=== PATIENT | male | born 1955 | race Caucasian/White ===

== ENCOUNTER 2019-07-06 09:28 | Outpatient (CLI) | payer MEDICARE ==
--- NOTE | 2019-07-06 11:15 | MRI ---
Exam: MRI cervical spine without contrast HISTORY: Radiculopathy.. COMPARISON: 07/08/2009 FINDINGS: Straightening of normal cervical lordosis. No significant STIR hyperintensity to suggest vertebral b christa edema from fracture. No STIR hyperintensity suggest ligamentous injury. Type I Modic changes at the left aspect of C6-C7. Otherwise, appropriate T1 marrow signal intensity o f the cervical vertebra. No evidence of an acute fracture Spondylolisthesis: 1.4 mm of anterolisthesis of C4 upon C5 2.1 mm anterolisthesis of C7 upon T1 Visualized brain parenchyma, cervicomedullary junction, cervical cord and the upper thoracic cord hav e a normal size and signal intensity. C2-C3: No significant central canal stenosis or significant neural foraminal narrowing C3-C4: Broad-based disc osteophyte complex, without significant central canal stenosis. Bilaterally, neural foramina are patent. C4-C5: Broad-based disc osteophyte complex contacts the ventral thecal sac. Subarachnoid space is nae ntained. No significant central canal stenosis. Mild right neural foramina due to uncovertebral hypertrophy. Left neural foramen is patent C5-C6: Broad-based disc osteophyte complex effaces the subarachnoid space. Mass effect and deformity the cervical cord. Moderate central canal stenosis. Moderate right and mild left neural foraminal narrowing due to uncovertebral hypertrophy C6-C7: Broad-based disc osteophyte complex abuts the thecal sac. Ventral subarachnoid space is nearly effaced. Mild central canal stenosis. Bilaterally, neural foramina are patent. C7-T1: No significant central canal stenosis. Bilaterally, neural foramina are patent IMPRESSION: 1. Multilevel degenerative changes of the cervical spine. There is moderate central canal stenosis at C5-C6 secondary to a broad-based disc osteophyte complex. The degree of central canal stenosis at C5-C6 has progressed since the previous examination. 2. Multilevel neural foraminal narrowing of the cervical spine as detailed above.
--- NOTE | 2019-07-06 11:37 | MRI ---
MRI LUMBAR SPINE: 07/06/2019 HISTORY: Lumbar radiculopathy COMPARISON: 11/13/2008 TECHNIQUE: Multiplanar multisequence MR imaging of the lumbar spine without contrast. FINDINGS: The sagittal STIR imaging demonstrates mild increased signal intensity along the superior endplate of the L5 vertebral body laterally on the left, new when compared to the prior exam. This could represent degenerative edema or edema on the basis of a mild superior endplate fracture. On the basis of five lumbar type vertebral bodies, the conus medullaris terminates at the T12-L1 leve l. T12-L1: Mild bilateral facet hypertrophy. Intervertebral disc height and signal intensity within norm al limits with no significant central canal or neural foraminal stenosis. L1-2: Mild bilateral facet hypertrophy. Disc desiccation noted. No significant central canal or neura l foraminal stenosis. L2-3: Mild bilateral facet hypertrophy. Intervertebral disc height and signal intensity within normal limits with no significant central canal or neural foraminal stenosis. L3-4: Bilateral facet hypertrophy and hypertrophy of the ligamentum flavum, right greater than left. There is disc space narrowing with disc desiccation and mild disc bulge, stable. No significant central canal stenosis. Mild left neural foraminal stenosis, new when compared to the prior examination. Mild anterior osteophyte formation noted, slightly worsened when compared to the prior examination. L4-5: Bilateral facet hypertrophy noted, left greater than right. No central canal stenosis noted. Mi ld bilateral neural foraminal stenosis, left greater than right, new. L5-S1: No significant central canal or neural foraminal stenosis. The visualized retroperitoneal structures appear grossly unremarkable. IMPRESSION: Lumbar spine degenerative change as described above. Mild increased STIR signal associated with the s uperior endplate of the L5 vertebral body laterally on the left may signify mild endplate fracture. Transcribed Date/Time: 07/06/2019 11:55 AM
== END 2019-07-06 09:29 | disposition home or self-care (01) ==
LOC: TBSIIMAG 09:28
PROVIDERS: ATTEND Anesthesiology Pain Medicine
DX: M47.26 Other spondylosis with radiculopathy, lumbar region (principal); M47.812 Spondylosis without myelopathy or radiculopathy, cervical region; M48.02 Spinal stenosis, cervical region
CPT/HCPCS: 72141; 72148

== ENCOUNTER 2019-07-17 08:09 | Emergency (ER) | payer MEDICARE ==
--- NOTE | 2019-07-17 09:14 | ULT ---
RIGHT UPPER EXTREMITY VENOUS DOPPLER ULTRASOUND: HISTORY: Right upper extremity pain TECHNIQUE: Grayscale color-flow and spectral Doppler imaging of the deep venous systems of the right upper extre mity was performed. FINDINGS: There is good flow, compression and normal spectral waveforms in the right internal jugular, subclavi an, axillary, brachial, radial, ulnar, basilic and cephalic veins . IMPRESSION: No evidence of DVT in the right upper extremity.
--- NOTE | 2019-07-17 09:39 | RAD ---
EXAM: 2 views of the right wrist HISTORY: Wrist pain COMPARISON: None FINDINGS: 2 views of the right wrist shows no evidence of acute fracture or dislocation. No soft tiss ue swelling is seen. No degenerative changes are present. IMPRESSION: No evidence of acute osseous abnormality.
== END 2019-07-17 09:50 | disposition home or self-care (01) ==
LOC: ERS 08:09
DX: M79.601 Pain in right arm (principal); E11.9 Type 2 diabetes mellitus without complications; E78.5 Hyperlipidemia, unspecified; E78.00 Pure hypercholesterolemia, unspecified; I10 Essential (primary) hypertension; Z79.899 Other long term (current) drug therapy

== ENCOUNTER 2019-07-26 06:32 | Observation (INO) | payer MEDICARE ==
[2019-07-26 06:59] LABS: #Basophils 0.1 thou/uL (0.0-0.2); #Eosinphils 0.2 thou/uL (0.0-0.7); #Lymphocytes 3.5 thou/uL (1.20-3.40); #Monocytes 0.5 thou/uL (0.11-0.59); #Neutrophils 3.4 thou/uL (1.40-6.50); %Basophils 0.8 % (0.0-1.0); %Eosinophils 2.4 % (0.0-10.0); %Lymphocytes 45.5 % (21.0-51.0); %Monocytes 6.7 % (0.0-10.0); %Neutrophils 44.7 % (42.0-75.0); Hemoglobin 12.8 g/dL (14.0-18.0); Mean Corpuscular HGB CONC 33.6 g/dL (32.0-36.0); Mean Corpuscular Hemoglobin 31.5 pg (27.0-31.0); Mean Corpuscular Volume 93.6 fL (78.0-98.0); Mean Platelet Volume 6.9 fL (7.4-10.4); Platelet Count 253 thou/uL (130-400); RBC Distribution Width 12.5 % (11.5-14.5); Red Blood Cell (RBC) Count 4.05 mill/uL (4.70-6.10); White Blood Cell (WBC) Count 7.6 thou/uL (4.8-10.8)
[2019-07-26 07:05] LABS: PTT 30.8 SEC (22.9-36.1)
[2019-07-26 07:11] LABS: Prothrombin Time 12.8 SEC (12.0-14.7)
[2019-07-26 07:21] LABS: ALT (SGPT) 17 U/L (8-55); AST (SGOT) 20 U/L (5-34); Albumin 4.5 g/dL (3.4-4.8); Alkaline Phosphatase 71 U/L (40-110); Anion Gap 16 mmol/L (10-20); BUN (Urea Nitrogen) 22 mg/dL (8.4-25.7); Bilirubin, Total 0.7 mg/dL (0.2-1.2); Calc. Creatinine Clearance 0 mL/min (70-130); Calcium 9.5 mg/dL (7.8-10.44); Carbon Dioxide 23 mmol/L (23-31); Chloride 105 mmol/L (98-107); Estimated GFR-MDRD 56; Globulin 2.9 g/dL (2.4-3.5); Glucose 100 mg/dL (80-115); Potassium 4.2 mmol/L (3.5-5.1); Protein, Total 7.4 g/dL (5.8-8.1); Sodium 140 mmol/L (136-145)
--- NOTE | 2019-07-26 08:28 | CT ---
PRELIMINARY REPORT/[facility]/EMERGENCY AFTER HOURS PROCEDURE: Addendum created by Keo Tomlinson MD on 07/26/2019 7:15 AM Central Time ([place] & [place]) Findings were discussed with Dr Kelley at 07/26/2019 7:[address] [place] JUDGE. Initial Report created on 07/26/2019 7:04 AM Central Time ([place] & [place]) PROCEDURE INFORMATION: Exam: CT Head Without Contrast Exam date and time: 07/26/2019 6:49 AM Clinical history: 64 years old, male; Altered mental status/memory loss; Patient HX: Left sided weakn ess; Headache; Dizziness TECHNIQUE: Imaging protocol: Computed tomography of the head without contrast. Other technique: STROKE PROTOCOL was implemented. COMPARISON: No relevant prior studies available. FINDINGS: Brain: Normal. No hemorrhage. Unremarkable white matter. No mass effect. No loss of brower-white differ entiation is demonstrated. Ventricles: Normal. No ventriculomegaly. Bones/joints: Unremarkable. No acute fracture. Sinuses: Visualized sinuses are unremarkable. No fluid levels. Mastoid air cells: Visualized mastoid air cells are well aerated. Soft tissues: Unremarkable. IMPRESSION: No acute intracranial hemorrhage. ASSESSMENT: ASPECTS ([place] Stroke Program Early CT Score) is 10. Thank you for allowing us to participate in the care of your patient. Dictated and Authenticated by: Keo Tomlinson MD 07/26/2019 7:04 AM Central Time ([place] & [place]) FINAL REPORT CT BRAIN WITHOUT CONTRAST: HISTORY: Level II stroke. COMPARISON: CT brain 2016. FINDINGS: Findings and impression are concordant with the preliminary report. IMPRESSION: No acute hemorrhage or infarct. Transcribed Date/Time: 07/26/2019 8:35 AM
--- NOTE | 2019-07-26 08:31 | CT ---
PRELIMINARY REPORT/[facility]/EMERGENCY AFTER HOURS PROCEDURE: PROCEDURE INFORMATION: Exam: CT Angiography Head With Contrast Exam date and time: 07/26/2019 6:55 AM Clinical history: 64 years old, male; Patient HX: Left sided weakness; Headache; Dizziness TECHNIQUE: Imaging protocol: Computed tomography angiography of the head with intravenous contrast. 3D rendering: MIP reconstructed images were created and reviewed. COMPARISON: CT Brain WO Con 07/26/2019 6:49 AM FINDINGS: Right internal carotid artery: Unremarkable. Intracranial segment is patent with no significant steno sis. No aneurysm. Right anterior cerebral artery: Unremarkable. No occlusion or significant stenosis. No aneurysm. Right middle cerebral artery: Unremarkable. No occlusion or significant stenosis. No aneurysm. Right posterior cerebral artery: Unremarkable. No occlusion or significant stenosis. No aneurysm. Right vertebral artery: Unremarkable. No occlusion or significant stenosis. No aneurysm. Left internal carotid artery: Unremarkable. Intracranial segment is patent with no significant stenos is. No aneurysm. Left anterior cerebral artery: Unremarkable. No occlusion or significant stenosis. No aneurysm. Left middle cerebral artery: Unremarkable. No occlusion or significant stenosis. No aneurysm. Left posterior cerebral artery: Unremarkable. No occlusion or significant stenosis. No aneurysm. Left vertebral artery: Unremarkable. No occlusion or significant stenosis. No aneurysm. Basilar artery: Unremarkable. No occlusion or significant stenosis. No aneurysm. IMPRESSION: No large intracranial artery aneurysm, dissection or occlusion. PROCEDURE INFORMATION: Exam: CT Angiography Neck With Contrast Exam date and time: 07/26/2019 6:55 AM Clinical history: 64 years old, male; Patient HX: Left sided weakness; Headache; Dizziness TECHNIQUE: Imaging protocol: Computed tomography angiography of the neck with intravenous contrast. COMPARISON: CT Brain WO Con 07/26/2019 6:49 AM FINDINGS: VASCULATURE: Right common carotid artery: Unremarkable. No stenosis. No dissection or occlusion. Right internal carotid artery: There is mild to moderate atherosclerotic calcification at the RIGHT carotid bulb resulting in mild stenosis at the origin of the RIGHT internal carotid artery. Right external carotid artery: Unremarkable. No occlusion or stenosis of the origin. Right vertebral artery: Unremarkable. No stenosis. No dissection or occlusion. Left common carotid artery: Unremarkable. No stenosis. No dissection or occlusion. Left internal carotid artery: There is mild to moderate atherosclerotic calcification at the LEFT car otid bulb resulting in mild stenosis at the origin of the LEFT internal carotid artery. Left external carotid artery: Unremarkable. No occlusion or stenosis of the origin. Left vertebral artery: Unremarkable. No stenosis. No dissection or occlusion. NECK: Bones/joints: No acute fracture. Soft tissues: Normal. No significant soft tissue swelling. IMPRESSION: 1. No acute vascular pathology. 2. Mild to moderate stenoses at the carotid bulbs bilaterally. COMMENT: Reference per NASCET criteria for degree of stenosis: Mild: less than 50% stenosis. Moderate: 50- 69% stenosis. Severe: 70-94% stenosis. Near occlusion: 95-99% stenosis. Thank you for allowing us to participate in the care of your patient. Dictated and Authenticated by: Keo Tomlinson MD 07/26/2019 7:25 AM Central Time ([place] & [place]) FINAL REPORT CTA ANGIO HEAD WITH AND WITHOUT CONTRAST: HISTORY: Level ii stroke. COMPARISON: None.. FINDINGS: CT angiogram head and neck performed after the intravenous ministration of contrast. 3-D rendering pr ovided. IMPRESSION: Findings and impression are concordant with the preliminary report. Transcribed Date/Time: 07/26/2019 8:38 AM
[2019-07-26 08:35] LABS: Bilirubin Negative (Negative); Blood, Urine Negative (Negative); Clarity Clear (Clear); Glucose, Urine (Dipstick) Normal (Negative); Leukocyte Negative Leu/uL (Negative); Nitrite Negative (Negative); Protein, Urine (Dipstick) Negative (Neg-Trace); Urobilinogen Normal mg/dL (Less than 2)
[2019-07-26 08:49] LABS: Amphetamine Not Detected (NotDetected); Barbiturates Screen Not Detected (NotDetected); Benzodiazepine Screen Detected (NotDetected); Cocaine Metabolite Screen Not Detected (NotDetected); Medtox Reader # READER 1; Methadone Not Detected (NotDetected); Methamphetamine Not Detected (NotDetected); Opiate Screen Not Detected (NotDetected); Oxycodone Screen Not Detected (NotDetected); Phencyclidine (PCP) Not Detected (NotDetected); THC/Cannabinoid Screen Not Detected (NotDetected); Tricyclic Screen Not Detected (NotDetected)
[2019-07-26 08:50] LABS: Medtox Control Line Valid? VALID (VALID)
[2019-07-26] MEDS ORDERED: Acetaminophen 500 MG TAB ONE (09:50)
[2019-07-26] MEDS ORDERED: ISOVUE-370 76%-LOCM 1 ML ONE (12:00)
[2019-07-26] MEDS ORDERED: Ondansetron ODT 4 MG TAB PO PRN (12:12)
[2019-07-26] MEDS ORDERED: Ondansetron PF 4 MG/2 ML Vial IVP PRN (12:12)
[2019-07-26] MEDS ORDERED: Acetaminophen 325 MG TAB PO PRN ×2 (12:13→12:24)
[2019-07-26] MEDS ORDERED: Sodium Chloride 0.9% 1,000 ML IV SCH (12:15)
[2019-07-26] MEDS ORDERED: Dextrose 5% in Water 1,000 ML IV PRN (12:24)
[2019-07-26] MEDS ORDERED: Labetalol HCl 100 MG/20 ML VIAL SLOW IVP PRN (12:24)
[2019-07-26] MEDS ORDERED: HumaLOG 300 UNITS/3 ML VIAL SC PRN (12:24)
[2019-07-26] MEDS ORDERED: Dextrose 50% Abboject 50 ML SYRINGE SLOW IVP PRN (12:24)
[2019-07-26] MEDS ORDERED: hydrALAZINE 20 MG/ML VIAL SLOW IVP PRN (12:24)
[2019-07-26] MEDS ORDERED: Bisacodyl 5 MG TAB PO PRN (12:24)
--- NOTE | 2019-07-26 14:22 | HP ---
PRIMARY CARE PROVIDER: Dr. Zackery Jordan in [place], [place]. CHIEF COMPLAINT: Left-sided numbness. HISTORY OF PRESENT ILLNESS: Mr. Santiago is a pleasant 64-year-old gentleman, who was seen at [facility] on July 26, 2019. He was reportedly normal at midnight when he went to sleep. On waking up today morning, he was found to have left-sided weakness, left-sided numbness and tingling and slurred speech. The patient also reports that the left side of his face was swollen, but that appears to have improved. He denies any chest pain or shortness of breath. He reports chronic pain for which he is on a Dilaudid pump. He denies any previous neurologic symptoms. REVIEW OF SYSTEMS: All systems were reviewed and found to be negative except for the pertinent positives mentioned above. PAST MEDICAL HISTORY: Diabetes, dyslipidemia, hypertension, chronic pain. SURGICAL HISTORY: Carpal tunnel surgery, bilateral knee surgery, suprapubic catheter placement and removal. SOCIAL HISTORY: The patient drinks three beers daily. He denies tobacco use or recreational drug use. FAMILY HISTORY: The patient denies any family history of cerebrovascular accidents. ALLERGIES: NO KNOWN DRUG ALLERGIES. CURRENT MEDICATIONS: 1. Temazepam 30 mg as needed. 2. Losartan 50 mg daily. 3. Pramipexole 1 mg daily. 4. Plavix 75 mg daily. 5. Clonidine 0.1 mg as needed. 6. Crestor 20 mg daily. 7. Benztropine 1 mg daily. 8. Gabapentin 600 mg 4 times a day. 9. Tizanidine 2 mg as needed. 10. Ozempic 0.25 mg once a week. 11. Dilaudid pump. PHYSICAL EXAMINATION: GENERAL: On examination, Mr. Santiago is awake and alert, not in acute distress. VITAL SIGNS: Blood pressure is 117/61, pulse 55, respiratory rate 17, and oxygen saturation 97% on room air. He is afebrile. EYES: No scleral icterus, no conjunctival pallor. ENT: Moist mucosal membranes. No oropharyngeal erythema or exudates. NECK: Supple, nontender, trachea is midline. RESPIRATORY: Accessory muscles of breathing are not active. Chest wall movements are symmetric bilaterally. Lungs are clear to auscultation without wheeze, rhonchi, or crepitations. CARDIOVASCULAR: S1 and S2 are heard, regular. Peripheral pulses palpable. ABDOMEN: Soft, nontender, bowel sounds heard. NEUROLOGIC: Cranial nerves 2 through 12 are intact. Power is 4+ out of 5 in the right upper and lower extremities, 4/5 in the left upper and lower extremities. Diminished sensation on the left side. Deep tendon reflexes 2+, plantars downgoing bilaterally. MUSCULOSKELETAL: Power in the 4 extremities as described above. SKIN: No rashes. LYMPHATIC: No cervical lymphadenopathy. PSYCHIATRIC: Normal mood, normal affect, the patient is oriented to person, place, and time. LABORATORY DATA: Mr. Santiago's labs and investigations were reviewed. I reviewed his electrocardiogram, which shows normal sinus rhythm, no ST changes to suggest an acute coronary syndrome. I also reviewed his noncontrast CT scan of the brain, which does not show any acute hemorrhage or infarct. CT angiogram of [place] did not show any acute vascular pathology. He had mild to moderate stenosis at the carotid bulbs bilaterally. He has normal white count, normocytic anemia with hemoglobin 12.8, normal platelet count, INR 1.0, normal comprehensive metabolic profile, urinalysis negative for nitrite and leukocyte esterase, and the urine toxicology screen positive for benzodiazepine. ASSESSMENT AND PLAN: Mr. Santiago is a pleasant 64-year-old gentleman, who was seen at [facility] on July 26, 2019. His problem list includes: 1. Left-sided weakness: Mr. Santiago is presenting with left-sided numbness, tingling, as well as weakness. CT scan of the brain did not show any abnormality. He will be admitted to the hospital for further management including MRI of the brain, 2D echocardiogram and Neurology consultation. He will be started on aspirin. 2. Chronic pain: The patient's home medications will be resumed once the doses are clarified. 3. Diabetes mellitus type 2: We will start patient on Accu-Cheks and insulin sliding scale. 4. Dyslipidemia: We will continue Crestor. 5. Hypertension: We will resume home medications, monitor vital signs and titrate antihypertensives as needed. Many thanks for allowing me to participate in your patient's care. Please feel free to contact me with any questions or concerns. LEVEL OF RISK: High. LEVEL OF COMPLEXITY: High. Job ID: [id number]
[2019-07-26 14:23] VITALS: BMI 37.9
[2019-07-26] MEDS ORDERED: FLU VACC QS2019-20(6MOS UP)/PF 60 MCG/0.5 ML SYRINGE IM ONE (14:30)
[2019-07-26] MEDS: Lorazepam 2 MG/ML VIAL SLOW IVP PRN (14:35)
[2019-07-26] MEDS: Aspirin 325 mg Enteric Coated Tablet PO SCH ×2 (16:31→19:28)
[2019-07-26] MEDS ORDERED: Gabapentin 300 MG CAP PO SCH (22:45)
[2019-07-26] MEDS ORDERED: Pramipexole Di-HCl 1 MG TAB PO SCH (22:45)
[2019-07-27] MEDS ORDERED: tiZANidine HCl 4 MG TAB PO PRN (02:05)
[2019-07-27] MEDS ORDERED: Temazepam 15 MG CAP PO SCH ×2 (02:15→21:00)
[2019-07-27 05:05] LABS: #Basophils 0.1 thou/uL (0.0-0.2); #Eosinphils 0.1 thou/uL (0.0-0.7); #Lymphocytes 2.8 thou/uL (1.20-3.40); #Monocytes 0.3 thou/uL (0.11-0.59); #Neutrophils 3.3 thou/uL (1.40-6.50); %Basophils 1.1 % (0.0-1.0); %Eosinophils 2.1 % (0.0-10.0); %Lymphocytes 41.7 % (21.0-51.0); %Monocytes 5.1 % (0.0-10.0); %Neutrophils 49.9 % (42.0-75.0); Hemoglobin 12.6 g/dL (14.0-18.0); Mean Corpuscular Volume 93.9 fL (78.0-98.0); Mean Platelet Volume 6.8 fL (7.4-10.4); Platelet Count 274 thou/uL (130-400); RBC Distribution Width 12.4 % (11.5-14.5); Red Blood Cell (RBC) Count 4.05 mill/uL (4.70-6.10); White Blood Cell (WBC) Count 6.7 thou/uL (4.8-10.8)
[2019-07-27 05:20] LABS: Anion Gap 12 mmol/L (10-20); BUN (Urea Nitrogen) 18 mg/dL (8.4-25.7); Calc. Creatinine Clearance 98 mL/min (70-130); Calcium 9.2 mg/dL (7.8-10.44); Carbon Dioxide 26 mmol/L (23-31); Cardiac Risk 3.6 (Less than 4.5); Chloride 105 mmol/L (98-107); Cholesterol 135 mg/dl (< 200 Desired); Estimated GFR-MDRD 63; Glucose 113 mg/dL (80-115); HDL Cholesterol 37 mg/dL (>60 Neg Risk); LDL Cholesterol, Calculated 78 mg/dL; Potassium 4.2 mmol/L (3.5-5.1); Sodium 139 mmol/L (136-145); Triglycerides 98 mg/dL (Less than 150)
[2019-07-27] MEDS: Losartan 25 MG TAB PO SCH (10:02)
[2019-07-27] MEDS: Aspirin 325 mg Enteric Coated Tablet PO SCH (10:02)
[2019-07-27] MEDS: Gabapentin 300 MG CAP PO SCH ×3 (10:04→20:59)
[2019-07-27] MEDS: Benztropine 1 MG TAB PO SCH (10:05)
[2019-07-27] MEDS: Clopidogrel Bisulfate 75 MG TAB PO SCH (10:05)
[2019-07-27] MEDS: Enoxaparin Sodium 40 MG/0.4 ML SYRINGE SC SCH (10:07)
[2019-07-27] MEDS: Pramipexole Di-HCl 1 MG TAB PO SCH ×3 (10:36→20:59)
[2019-07-27] MEDS: Lorazepam 2 MG/ML VIAL SLOW IVP PRN (10:56)
--- NOTE | 2019-07-27 12:51 | MRI ---
MRI BRAIN WITHOUT CONTRAST: HISTORY: Altered mental status. Memory loss. Left-sided weakness. Headache. Dizziness. CORRELATION: Previous day's CT scan. FINDINGS: No restricted diffusion is seen. No evidence of acute infarct, hemorrhage, midline shift or abnormal extraaxial fluid collections is seen. The ventricular size is appropriate and the basilar cisterns ar e patent. The visualized paranasal sinuses and mastoid air cells are well aerated. IMPRESSION: No evidence of acute intracranial process. POS: OFF
--- NOTE | 2019-07-27 18:16 | PDOC.HOSPP ---
- Subjective Encounter Date: 07/27/19 Encounter Time: 18:14 Subjective: Pt seen for followup re: left sided weakness. feels slightly better. - Objective Vital Signs & Weight: Vital Signs (12 hours) Temp Pulse Pulse Pulse Resp BP BP 07/27/19 15:49 97.9 F 58 L 16 07/27/19 13:15 80 75 114/54 L 07/27/19 11:00 98.4 F 64 17 07/27/19 08:37 99 70 147/111 H 07/27/19 08:30 07/27/19 08:10 98.3 F 67 20 136/58 L BP BP Pulse Ox 07/27/19 15:49 104/64 96 07/27/19 13:15 146/69 H 07/27/19 11:00 137/82 92 L 07/27/19 08:37 155/76 H 07/27/19 08:30 94 L 07/27/19 08:10 Weight Weight 234 lb 12.8 oz I&O: 07/26/19 07/27/19 07/28/19 06:59 06:59 06:59 Intake Total 1860 Output Total 1300 Balance 560 Result Diagrams: 07/27/19 04:42 07/27/19 04:42 Additional Labs: Accuchecks 07/27/19 07/27/19 07/27/19 16:58 10:38 06:00 POC Glucose 103 106 90 07/26/19 19:22 POC Glucose 83 Labs and MARs reviewed by me EKG Reviewed by me: Yes (Tele: NSR) Hospitalist ROS - Review of Systems Cardiovascular: denies: chest pain, palpitations, orthopnea, paroxysmal noc. dyspnea, edema, light headedness Neurological: reports: weakness, numbness. denies: incoordination, change in speech, confusion, seizures - Medication Medications: Active Medications Generic Name Dose Route Start Last Admin Trade Name Freq PRN Reason Stop Dose Admin Aspirin 325 mg 07/27/19 09:00 07/27/19 10:02 Ecotrin PO 325 mg DAILY TONI Administration Benztropine Mesylate 1 mg 07/27/19 09:00 07/27/19 10:05 Cogentin PO 1 mg DAILY TONI Administration Clopidogrel Bisulfate 75 mg 07/27/19 09:00 07/27/19 10:05 Plavix PO 75 mg DAILY TONI Administration Enoxaparin Sodium 40 mg 07/27/19 09:00 07/27/19 10:07 Lovenox SC 40 mg 0900 TONI Administration Gabapentin 600 mg 07/27/19 09:00 07/27/19 15:13 Neurontin PO 600 mg TID TONI Administration Lorazepam 0.5 mg 07/26/19 14:17 07/27/19 10:56 Ativan SLOW IVP 0.5 mg Q6H PRN Administration Anxiety/Agitation Losartan Potassium 50 mg 07/27/19 09:00 07/27/19 10:02 Cozaar PO 50 mg DAILY TONI Administration Pramipexole Dihydrochloride 1 mg 07/27/19 09:00 07/27/19 15:13 Mirapex PO 1 mg TID TONI Administration Sodium Chloride 10 ml 07/26/19 21:00 07/27/19 10:06 Flush - Normal Saline IVF 10 ml Q12HR TONI Administration Tizanidine HCl 4 mg 07/27/19 02:05 07/27/19 13:58 Zanaflex PO 4 mg TID PRN Administration Muscle Spasm - Exam General - other findings: Obese Eye: anicteric sclera ENT: moist mucosa Neck: supple Heart: RRR Respiratory: CTAB Gastrointestinal: soft, non-tender Neurological - other findings: Decreased sensation L side Musculoskeletal: normal tone Psychiatric: normal affect, normal behavior Hosp A/P (1) Left-sided weakness Code(s): R53.1 - WEAKNESS Status: Acute (2) DM2 (diabetes mellitus, type 2) Status: Chronic (3) Chronic pain Code(s): G89.29 - OTHER CHRONIC PAIN Status: Chronic (4) HTN (hypertension) Code(s): I10 - ESSENTIAL (PRIMARY) HYPERTENSION Status: Chronic - Plan Monitor vital signs, titrate antihypertensives as needed. Good control of blood sugars. Await neurosurgery input. MRI brain and 2D echo reports noted.
--- NOTE | 2019-07-27 21:20 | CON ---
DATE OF TELEMEDICINE CONSULTATION: 07/27/2019 CHIEF COMPLAINT: The patient comes in with left-sided weakness. He reports he was having swelling of his wrist, which then spread to both the wrists and legs by the second day. He was unable to use his hand very well. He has had dysarthria for a residential. He developed sudden-onset left-sided weakness and left-sided numbness mostly in the left arm and leg at home normally, he needs help sometimes with getting dressed or taking care of his day-to-day activities, but mostly needs help getting up from the couch. He lives with his cousin. He has chronic back pain. He fell last week end and his back pain is a major cause of difficulty for him. PREVIOUS MEDICAL HISTORY: The patient has diabetes, hypertension. He has been on Dilaudid pain pump for 2-1/2 years. Prior to that, he was on a pain stimulator , and the patient also has dyslipidemia, hypertension, and Parkinson's disease. PAST SURGICAL HISTORY: Carpal tunnel surgery, bilateral knee surgery, and suprapubic catheter placement and removal. SOCIAL HISTORY: He drinks 2 beers a day at every night for the last 2 years because of pain. He does not smoke or drink and use any drugs. He lives with his cousin, who helps him. History is positive for diabetes. FAMILY HISTORY: Father at 64 from pancreatic cancer. His mother at 78 from Alzheimer's. He has 5 sisters, some of them have diabetes. One of the sisters has difficulty with walking. ALLERGIES: NO KNOWN DRUG ALLERGIES. MEDICATIONS: At home, he takes; 1. Temazepam. 2. Losartan. 3. Plavix. 4. Clonidine. 5. Crestor. 6. Benztropine. 7. Gabapentin. 8. Tizanidine. 9. Ozempic. 10. Dilaudid pump. REVIEW OF SYSTEMS: PULMONARY: Negative for shortness of breath. GI: Negative for nausea, vomiting, or diarrhea. NEUROLOGICAL: Positive for left arm and leg weakness. DERMATOLOGICAL: Negative for rash. RHEUMATOLOGICAL: Positive for leg swelling. LABORATORY DATA: Workup so far. Labs; white count 6.7, hemoglobin 12.6, hematocrit 38.1, and platelets 274. Sodium 139, potassium 4.2, chloride 105, bicarb 26, BUN 18, creatinine 1.18, and glucose 113. Lipid profile is within normal limits. Urinalysis is negative for bacteria, was positive for ketones. Urine tox positive for benzodiazepine and his MRI of the brain was completed and did not reveal any abnormalities. No acute stroke was identified. CT [place] and angio with contrast showed no acute vascular pathology, but [id number] stenosis of the carotid bulbs bilaterally. PHYSICAL EXAMINATION: VITAL SIGNS: Temperature was 97.9, pulse 58, respiratory rate 16, O2 saturations 96, and blood pressure 104/64. GENERAL APPEARANCE: Well-built, well-nourished man, who is slightly obese. He had joint swelling diffusely. CHEST: Clear vesicular breathing. CARDIOVASCULAR: S1 and S2. No murmurs. ABDOMEN: Soft. NEUROLOGICAL: Higher intellectual functions. Normal orientation to time, place , and person. In cranial nerves, he had partial ptosis of the right eye, which can be overcome with effort. Normal extraocular movements. Pupils are reactive 2 mm bilaterally. Tongue midline. No atrophy noted. Motor and normal hearing bilaterally to finger rub. He did report decreased sensation on the left face and he had no facial asymmetry. Motor examination, he had left arm drift and weakness on the left side diffusely, left arm and leg at 3/5 strength, 5/5 on the right. Muscle groups tested deltoid, biceps, triceps, wrist extension and flexion, finger extension and flexion, iliopsoas, hamstrings, quadriceps, ankle dorsiflexion and plantar flexion. Deep tendon reflexes 3+ in lower extremities and 2+ in upper extremities. Sensory left-sided numbness is in face, arm, and leg. Cerebellar, normal [id number]. [id number] was difficult for him to perform and involuntary movements, he had myoclonic tremor in the left arm mainly. IMPRESSION AND TREATMENT RECOMMENDATIONS : The patient is a 64-year-old man with multiple medical issues and chronic pain. He has difficulties with dressing himself and also getting up from the chair and his examination shows joint swelling along with weakness of the left side and mainly left arm and leg. I reviewed his MRI report from 2 weeks ago, which was performed on the 06 of July. MRI of the cervical spine was definitely abnormal even at that time, which show he has multilevel degenerative changes of the cervical spine and he has central canal stenosis as well, and at this time, I do believe in the absence of acute stroke on MRI and no significant vascular stenosis, he most likely has had progression of his neck degenerative disk disease and is probably having some left-sided weakness from it. 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 I will follow up as needed. Job ID: [id number] MTDD
[2019-07-28 06:14] LABS: #Basophils 0.1 thou/uL (0.0-0.2); #Eosinphils 0.2 thou/uL (0.0-0.7); #Lymphocytes 2.6 thou/uL (1.20-3.40); #Monocytes 0.6 thou/uL (0.11-0.59); %Basophils 0.8 % (0.0-1.0); %Eosinophils 2.8 % (0.0-10.0); %Lymphocytes 39.9 % (21.0-51.0); %Neutrophils 46.5 % (42.0-75.0); Hemoglobin 12.8 g/dL (14.0-18.0); Mean Corpuscular HGB CONC 32.2 g/dL (32.0-36.0); Mean Corpuscular Hemoglobin 30.8 pg (27.0-31.0); Mean Corpuscular Volume 95.8 fL (78.0-98.0); Mean Platelet Volume 6.7 fL (7.4-10.4); Platelet Count 268 thou/uL (130-400); RBC Distribution Width 12.3 % (11.5-14.5); Red Blood Cell (RBC) Count 4.16 mill/uL (4.70-6.10); White Blood Cell (WBC) Count 6.4 thou/uL (4.8-10.8)
[2019-07-28 06:40] LABS: Anion Gap 14 mmol/L (10-20); BUN (Urea Nitrogen) 14 mg/dL (8.4-25.7); Calc. Creatinine Clearance 96 mL/min (70-130); Calcium 9.4 mg/dL (7.8-10.44); Carbon Dioxide 23 mmol/L (23-31); Chloride 103 mmol/L (98-107); Estimated GFR-MDRD 61; Glucose 98 mg/dL (80-115); Potassium 4.4 mmol/L (3.5-5.1); Sodium 136 mmol/L (136-145)
--- NOTE | 2019-07-28 07:53 | CON ---
DATE OF CONSULTATION: HISTORY OF PRESENT ILLNESS: Mr. Santiago is a 64-year-old male. He reported to the emergency department due on July 26, for stroke like symptoms. He awoke in the morning on the and had left-sided weakness, left-sided numbness and tingling and some slurred speech. The patient went to bed normal. The patient has been worked up by hospitalist and Neurology has seen him. Neurosurgery was consulted to see if his symptoms could be explained by some spinal abnormalities seen on MRI done approximately 2 weeks ago. When I saw the patient, he is sleeping. He is difficult to arouse. However, it is late Saturday evening. He states that he has not gotten much sleep in the last days and so he is quite tired. He does seem a little groggy and without talking to him pretty frequently, he does drift back off to sleep pretty easily. He does seem to be in fairly good spirits and does not describe any numbness or tingling to me when I saw him. The patient had outpatient cervical and lumbar MRIs done on 07/06/2019. The patient is moving all 4 extremities well. He does seem to have a little left-sided upper extremity weakness compared to the right, but not significant lower extremity on exam, seems about equal bilaterally. REVIEW OF SYSTEMS: A 10-point review of systems is negative other than stated in the above HPI. PAST MEDICAL HISTORY: Diabetes, hyperlipidemia, muscle disorder, chronic pain, MSSA, hypertension. PAST SURGICAL HISTORY: Orthopedic surgery, carpal tunnel, bilateral knee surgery, subpubic catheter placed and discontinued pain pump to right flank. SOCIAL HISTORY: The patient drinks every day, less than 5 drinks per day. The patient has no smoking history. Denies illicit drug use. FAMILY HISTORY: Noncontributory. Pancreatic cancer, arthritis, heart problems. ALLERGIES: NO KNOWN DRUG ALLERGIES. CURRENT MEDICATIONS: 1. Temazepam. 2. Losartan. 3. Pramipexole. 4. Clopidogrel. 5. Clonidine. 6. Crestor. 7. Benztropine. 8. Gabapentin. 9. Tizanidine. PHYSICAL EXAMINATION: VITAL SIGNS: Temperature 98.1, heart rate 64, respirations 18, O2 saturations 94% on room air. Blood pressure 120/65. CONSTITUTIONAL: The patient is awake, alert. He does drift off to sleep rather easily, but he is oriented to person, place, and time. He appears nontoxic. Normotensive and afebrile. HEENT. Head is normocephalic and atraumatic. Pupils are equal, round, and reactive to light. Extraocular movements are intact. Hearing is intact. Moist mucous membranes. RESPIRATIONS: Normal work of breathing on room air. Symmetric chest rise. EXTREMITIES: Upper extremities; the patient has normal range of motion in both upper and lower extremities. 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 He has 4/5 biceps and triceps on the right. Lower extremities; 5/5 strength in hip flexion, hip extension, dorsiflexion, plantar flexion. NEUROLOGIC: The patient is awake. He is alert. He is sleepy and drifts to sleep quickly, but is oriented to person, place, and time. Speech is spontaneous and fluent. He has some confusion about what is going on with him, but other than that, he seems to be appropriate. I did not see lateralizing sensory deficit. He has slight decreased strength on the left upper extremity. IMAGING: MRI of cervical spine done on 07/06 shows multilevel degenerative changes in cervical spine. There is moderate central canal stenosis at C5-C6 secondary to broad-based disk osteophyte complex. The degree of central canal stenosis at C5-C6 is progressed since the previous exam, multilevel neural foraminal narrowing of cervical spine. ASSESSMENT AND PLAN: Mr. Santiago is a 64-year-old male, who presented to the emergency department on Saturday morning for stroke like symptoms. Neurosurgery was consulted to rule out cervical cord involvement for the patient's left-sided weakness. The patient does have a moderate disk at C5-C6. However, there is not enough compression that would warrant any myelopathic symptoms or emergent neurosurgical intervention necessary. The patient could at this point have radiculopathy, but I do not notice one at this time. Likely, his symptoms are not related to the degenerative changes in the cervical spine. These will take time to get to where they are and is not a sudden change or new injury that cause these things. If the patient desires to follow up based on his cervical spine, he may outpatient. If he already has a neurosurgeon, then he can follow up with him. Job ID: [id number]
[2019-07-28] MEDS: Gabapentin 300 MG CAP PO SCH ×2 (08:27→16:13)
[2019-07-28] MEDS: Pramipexole Di-HCl 1 MG TAB PO SCH ×2 (08:27→16:13)
[2019-07-28] MEDS: Aspirin 325 mg Enteric Coated Tablet PO SCH (08:29)
[2019-07-28] MEDS: Clopidogrel Bisulfate 75 MG TAB PO SCH (08:29)
[2019-07-28] MEDS: Benztropine 1 MG TAB PO SCH (08:30)
[2019-07-28] MEDS: Enoxaparin Sodium 40 MG/0.4 ML SYRINGE SC SCH (08:31)
[2019-07-28] MEDS: Losartan 25 MG TAB PO SCH (09:46)
[2019-07-28 15:43] VITALS: BP 123/54; TEMP 97.9
--- NOTE | 2019-07-28 18:54 | DIS ---
DATE OF ADMISSION: 07/26/2019 DATE OF DISCHARGE: 07/28/2019 PRIMARY CARE PROVIDER: Dr. Zackery Raphael in [facility]. DISCHARGE DIAGNOSES: 1. Left-sided numbness. 2. Left-sided weakness. 3. C-spine stenosis. CONDITION OF THE PATIENT ON THE DAY OF DISCHARGE: Stable. I assessed Mr. Santiago on the day of discharge. He denies any chest pain or shortness of breath. Vital signs are stable. S1 and S2 are heard, regular. Lungs are clear to auscultation bilaterally. CONSULTATIONS DURING THIS HOSPITALIZATION: Neurology, Dr. Deng. Neurosurgery, Dr. Carey. HOSPITAL COURSE: Mr. Santiago is a pleasant 64-year-old gentleman, who was admitted to [facility] on 07/26/2019, for left-sided numbness and weakness. Please refer to my history and physical note for further details. He was seen by Neurology Service. MRI of the brain did not show any acute intracranial abnormality. 2D echocardiogram showed left ventricular ejection fraction of 55% to 60%, mild concentric LVH, diastolic function could not be assessed, mild mitral regurgitation, and [id number] tricuspid regurgitation. He was also seen by Neurosurgery Service. He has been advised to follow up with Neurosurgery as outpatient. If he already has a neurosurgeon, he is advised to follow up with them. I have advised him to discuss with his primary care provider regarding the same. No change was made to his pre-admission home medications. He is being discharged home in a stable condition. POST-ACUTE CARE DISCHARGE FOLLOWUP: With primary care provider in 3 to 5 days and with neurosurgeon of his choice in 2 to 3 weeks. Many thanks for allowing me to participate in your patient's care. Please feel free to contact me with any questions or concerns. DISCHARGE DESTINATION: Home. Job ID: [id number]
== END 2019-07-28 17:28 | disposition home or self-care (01) ==
LOC: ERS 06:32 → 2SE 09:09
PROVIDERS: ADMIT Internal Medicine; ATTEND Internal Medicine
DX: R20.0 Anesthesia of skin (principal); R53.1 Weakness; R47.81 Slurred speech; M48.02 Spinal stenosis, cervical region; E11.9 Type 2 diabetes mellitus without complications; E78.5 Hyperlipidemia, unspecified; I10 Essential (primary) hypertension; G20 Parkinson's disease; G89.29 Other chronic pain; M50.322 Other cervical disc degeneration at C5-C6 level; I08.1 Rheumatic disorders of both mitral and tricuspid valves; Z79.02 Long term (current) use of antithrombotics/antiplatelets; Z79.82 Long term (current) use of aspirin; Z79.84 Long term (current) use of oral hypoglycemic drugs; Z79.899 Other long term (current) drug therapy
CPT/HCPCS: 70450; 70496; 70498; 70551; 80048 ×2; 80053; 80061; 80306; 81003; 82962 ×3; 84484; 85025 ×3; 85610; 85730; 93005; 93306; 96372 ×2; 97116 ×2; 97139 ×4; 97530 ×3; 99285; G0378 ×3; 36415; 36416; J1650; J2060; Q9966